=== PATIENT | male | born 1990 | race Two or more races ===

== ENCOUNTER 2024-12-06 17:14 | Emergency (ER) | payer OTHER ==
[~2024-12-06] VITALS: Ht 182.9 cm; Wt 83.5 kg
== END 2024-12-06 18:35 | disposition home or self-care (01) ==
LOC: ER 17:17
DX: S01.521A Laceration with foreign body of lip, initial encounter (principal); W18.39XA Other fall on same level, initial encounter; Y93.89 Activity, other specified; Y92.89 Other specified places as the place of occurrence of the external cause; F17.210 Nicotine dependence, cigarettes, uncomplicated